=== PATIENT | female | born 1950 | race Two or more races ===

== ENCOUNTER 2023-01-26 22:21 | Emergency (ER) | payer MEDICARE ==
[~2023-01-26] VITALS: Ht 165.1 cm; Wt 60.0 kg
[2023-01-26 22:21] VITALS: BP 111/72; PULSE 69; RESP 20; TEMP 98.4
[2023-01-27] MEDS ORDERED: ACET500T58 PO (01:22)
[2023-01-27] MEDS ORDERED: CEPH500C PO (01:22)
[2023-01-27] MEDS ORDERED: TETANUS-DIPTH-ACEL PERTUSSIS 0.5ML SYR Tdap IM ONE (01:30)
[2023-01-27 01:52] VITALS: O2SAT 96
== END 2023-01-27 02:37 | disposition home or self-care (01) ==
LOC: ER 22:21
DX: S61.011A Laceration without foreign body of right thumb without damage to nail, initial encounter (principal); S61.214A Laceration without foreign body of right ring finger without damage to nail, initial encounter; Z79.899 Other long term (current) drug therapy; W01.110A Fall on same level from slipping, tripping and stumbling with subsequent striking against sharp glass, initial encounter; Y93.89 Activity, other specified; Y92.89 Other specified places as the place of occurrence of the external cause; Y99.8 Other external cause status
CPT/HCPCS: 12002; 73130; 90471; 90715